=== PATIENT | male | born 1935 | race Caucasian/White ===

== ENCOUNTER 2017-12-17 00:46 | Emergency (ER) | payer MEDICARE, OTHER ==
[~2017-12-17 00:46] MED LIST: ATEN-1 PO; BENZ200C15 PO; CEP500 PO; CETI10CA8 PO; CLIN300C99 PO; CLON-327 PO; CLON-329 PO; FEXO-67 PO; FLU60SYR30 IM ONLY; FLUT16SP19 ENA; FLUT16SP19 NS; HYDR-2966 PO; HYDR10TA3 PO; HYDR30CR10; LISI-347 PO; LISI-353 PO; LORA-629 PO; MONT10TA PO; MONT10TA4 PO; PNEI IJ; PRE20 PO
--- NOTE | 2017-12-17 00:48 | ER Report ---
History and Physical Time Seen By MD: 00:47 HPI/ROS CHIEF COMPLAINT: Chest pain HISTORY OF PRESENT ILLNESS: 82-year-old male presents ambulatory to the ER complaining of sharp left-sided chest pain which woke him up. He describes a sharp 5/60 pain in his left lower rib cage. There is no radiation. He has no associated symptoms. He's had no fever or chills. He has a history of hypertension. He is followed by Dr. Lozano. Patient notes no shortness of breath, cough or recent fever or URI symptoms. Patient states he retired to bed without any symptoms. On arrival now his chest pain is 1/10. His blood pressure is noted to be grossly elevated 203/116 REVIEW OF SYSTEMS: Respiratory: No cough, no dyspnea. Cardiovascular: As above Gastrointestinal: No vomiting, no abdominal pain. Musculoskeletal: No back pain. Allergies: Coded Allergies: cocamidopropyl betaine (Verified Allergy, Severe, blisters, red irritated skin, 12/17/17) lisinopril (Verified Allergy, Severe, 12/17/17) ANDIOEDEMA [place] Inhibitors (Verified Allergy, Unknown, 12/17/17) amlodipine (Verified Allergy, Unknown, 12/17/17) Penicillins (Verified Adverse Reaction, Mild, HIVES, 12/17/17) Home Meds Active Scripts Clonidine Hcl (CLONIDINE HCL) 0.2 Mg Tablet, 1 TAB PO BID, #120 TAB Prov:ABEL AYALA MD 10/31/17 Atenolol (ATENOLOL) 50 Mg Tablet, 1 TAB PO QDAY, #90 TAB Prov:LATASHA LOZANO MD 10/24/17 Reported Medications Fexofenadine Hcl (MELISSA ALLERGY) 180 Mg Tablet, 180 MG PO QDAY 12/07/17 Hydroxyzine Hcl (HYDROXYZINE HCL) 10 Mg Tablet, 10 MG PO QDAY 05/17/17 Past Medical/Surgical History Past Medical History Neurologic: Reports hx of: other neurologic history ([place] syndrome [id number], 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) Hematology/oncology (M): Reports hx of: skin cancer (wrist) Events: REPORTS HX OF: Other events (asbestosis exposure ) Past Surgical History HEENT: Reports hx of: tonsillectomy Reviewed Nurses Notes: Yes Old Medical Records Reviewed: Yes Hx Smoking: No Smoking Status: Never Smoker Hx Substance Use Disorder: No Hx Alcohol Use: Yes (OCC) Constitutional Vital Sign - Last 24 Hours 12/17/17 12/17/17 12/17/17 12/17/17 00:49 00:50 01:01 01:02 Temp 98.0 Pulse 76 61 Resp 16 19 B/P (MAP) 205/103 205/103 (137) 175/94 (121) Pulse Ox 96 94 O2 Delivery Room Air 12/17/17 12/17/17 12/17/17 12/17/17 01:30 01:31 01:46 02:00 Pulse 58 57 Resp 15 12 B/P (MAP) 153/89 (110) 163/84 (110) Pulse Ox 94 92 12/17/17 12/17/17 12/17/17 12/17/17 02:01 02:16 02:30 02:31 Pulse 59 57 58 Resp 52 20 B/P (MAP) 152/93 (112) Pulse Ox 95 94 93 12/17/17 02:36 Pulse 85 Resp 16 B/P (MAP) 142/85 (104) Pulse Ox 95 O2 Delivery Room Air Physical Exam Vital signs stable, grossly elevated blood pressure, pulse ox normal General Appearance: The patient is alert, has no immediate need for airway protection and no current signs of toxicity. Mild distress, alert and oriented 3 HEENT: Pupils equal and round no injection. TMs normal, oropharynx without redness or exudate Respiratory: Chest is non tender, lungs are clear to auscultation. No chest wall tenderness Cardiac: regular rate and rhythm, distant heart sounds Gastrointestinal: Abdomen is soft and non tender, no masses, bowel sounds normal. Musculoskeletal: Neck: Neck is supple and non tender. No JVD, no lymphadenopathy Extremities have full range of motion and are non tender. No edema, no calf tenderness Skin: No rashes or lesions. DIFFERENTIAL DIAGNOSIS: After history and physical exam differential diagnosis was considered for chest pain including but not limited to myocardial ischemia, pericarditis pulmonary embolus, chest wall pain, pleural inflammation and pulmonary infectious causes. Medical Decision Making Data Points Result Diagram: 12/17/17 0055 12/17/17 0055 Laboratory Hematology Test 12/17/17 00:55 Red Blood Count 5.53 M/uL (4.00-5.60) Mean Corpuscular Volume 87.3 fL (80.0-96.0) Mean Corpuscular Hemoglobin 30.1 pg (26.0-33.0) Mean Corpuscular Hemoglobin Concent 34.4 g/dL (32.0-36.0) Red Cell Distribution Width 14.2 % (11.5-14.5) Mean Platelet Volume 7.7 fL (7.2-11.1) Neutrophils (%) (Auto) 53.9 % (39.4-72.5) Lymphocytes (%) (Auto) 33.7 % (17.6-49.6) Monocytes (%) (Auto) 7.4 % (4.1-12.4) Eosinophils (%) (Auto) 4.0 % (0.4-6.7) Basophils (%) (Auto) 1.0 % (0.3-1.4) Nucleated RBC Relative Count (auto) 0.0 /100WBC Neutrophils # (Auto) 3.5 K/uL (2.0-7.4) Lymphocytes # (Auto) 2.2 K/uL (1.3-3.6) Monocytes # (Auto) 0.5 K/uL (0.3-1.0) Eosinophils # (Auto) 0.3 K/uL (0.0-0.5) Basophils # (Auto) 0.1 K/uL (0.0-0.1) Nucleated RBC Absolute Count (auto) 0.00 K/uL D-Dimer Quantitative (PE/DVT) 0.47 ug/ml (0-0.50) Sodium Level 137 mmol/L (137-145) Potassium Level 4.0 mmol/L (3.5-5.0) Chloride Level 100 mmol/L (98-107) Carbon Dioxide Level 25 mmol/L (22-30) Blood Urea Nitrogen 20 mg/dl (9-21) Creatinine 0.90 mg/dl (0.66-1.25) Glomerular Filtration Rate Calc > 60.0 Random Glucose 90 mg/dl (75-110) Calcium Level 9.3 mg/dl (8.4-10.2) Total Bilirubin 0.6 mg/dl (0.2-1.3) Aspartate Amino Transf (AST/SGOT) 47 U/L (0-35) Alanine Aminotransferase (ALT/SGPT) 50 U/L (0-56) Alkaline Phosphatase 91 U/L (0-126) Troponin I < 0.012 ng/ml B-Type Natriuretic Peptide 196 pg/ml (0-100) Total Protein 7.8 gm/dl (6.3-8.2) Albumin 4.0 g/dl (3.5-5.0) Chemistry Test 12/17/17 00:55 White Blood Count 6.4 k/uL (4.5-11.0) Red Blood Count 5.53 M/uL (4.00-5.60) Hemoglobin 16.6 g/dL (14.0-18.0) Hematocrit 48.3 % (42.0-52.0) Mean Corpuscular Volume 87.3 fL (80.0-96.0) Mean Corpuscular Hemoglobin 30.1 pg (26.0-33.0) Mean Corpuscular Hemoglobin Concent 34.4 g/dL (32.0-36.0) Red Cell Distribution Width 14.2 % (11.5-14.5) Platelet Count 122 K/uL (150-450) Mean Platelet Volume 7.7 fL (7.2-11.1) Neutrophils (%) (Auto) 53.9 % (39.4-72.5) Lymphocytes (%) (Auto) 33.7 % (17.6-49.6) Monocytes (%) (Auto) 7.4 % (4.1-12.4) Eosinophils (%) (Auto) 4.0 % (0.4-6.7) Basophils (%) (Auto) 1.0 % (0.3-1.4) Nucleated RBC Relative Count (auto) 0.0 /100WBC Neutrophils # (Auto) 3.5 K/uL (2.0-7.4) Lymphocytes # (Auto) 2.2 K/uL (1.3-3.6) Monocytes # (Auto) 0.5 K/uL (0.3-1.0) Eosinophils # (Auto) 0.3 K/uL (0.0-0.5) Basophils # (Auto) 0.1 K/uL (0.0-0.1) Nucleated RBC Absolute Count (auto) 0.00 K/uL D-Dimer Quantitative (PE/DVT) 0.47 ug/ml (0-0.50) Glomerular Filtration Rate Calc > 60.0 Calcium Level 9.3 mg/dl (8.4-10.2) Total Bilirubin 0.6 mg/dl (0.2-1.3) Aspartate Amino Transf (AST/SGOT) 47 U/L (0-35) Alanine Aminotransferase (ALT/SGPT) 50 U/L (0-56) Alkaline Phosphatase 91 U/L (0-126) Troponin I < 0.012 ng/ml B-Type Natriuretic Peptide 196 pg/ml (0-100) Total Protein 7.8 gm/dl (6.3-8.2) Albumin 4.0 g/dl (3.5-5.0) Coagulation Test 12/17/17 00:55 D-Dimer Quantitative (PE/DVT) 0.47 ug/ml EKG/Imaging EKG Interpretation 12 lead EK Rhythm: normal sinus rhythm with) branch block pattern [place]: normal QRS: Wide QRS ST segments: normal, comparison to previous EKG dated 12/26/59, no significant change Imaging X-ray: Single view portable chest x-ray was obtained. I viewed the images myself on the PACS system. My interpretation of the images is: No infiltrate, no effusion, normal mediastinum., Comparison to previous chest x-ray dated 06/21, no significant change. The radiologist interpretation had no clinically significant variation from this interpretation. ED Course/Re-evaluation Clinical Indication for ER IV: IV Access ED Course Patient was admitted to an examination room. H&P was done. The differential diagnoses was considered. On clinical examination. Patient has left-sided chest pain which she describes as sharp in nature. He notes no associated symptoms. He does have history of hypertension blood pressures grossly elevated. Said no recent illness. His EKG is unchanged from previous EKG. He has a known thoracic aneurysm. It's not changed in many years. Patient's diagnostic laboratory studies show normal troponin. Without any treatment. Patient's pain spontaneously resolves. His blood pressure comes back down to normal range 153/96. He is discharged home and advised to follow-up with his primary care for reevaluation of his blood pressure this next week. He states he has an appointment on Tuesday. Decision to Disposition Date: Dec 17, 2017 Decision to Disposition Time: 02:17 Depart Departure Latest Vital Signs Vital Signs Date Time Temp Pulse Resp B/P (MAP) Pulse Ox O2 Delivery O2 Flow Rate FiO2 12/17/17 02:36 85 16 142/85 (104) 95 Room Air 12/17/17 00:49 98.0 Impression: Primary Impression: Pleuritic chest pain Additional Impression: Hypertension Condition: Improved Disposition: HOME OR SELF-CARE Referrals: LATASHA LOZANO MD (PCP) Patient Instructions: Chest Wall Pain (ED), Hypertension (ED) Additional Instructions: Follow-up with your primary care next early week for a blood pressure recheck and follow-up on your chest pain Return to the ER for any worsening Problem Qualifiers Additional Impression: Hypertension Hypertension type: essential hypertension Qualified Codes: I10 - Essential ( primary) hypertension MARIANA ALBA DO Dec 17, 2017 00:48
[2017-12-17] MEDS ORDERED: ASPIRIN 81 MG CHEW PO ONE (00:55)
[2017-12-17 01:04] LABS: PLATELET COUNT, AUTOMATED 122 K/uL (150-450)
--- NOTE | 2017-12-17 02:35 | RADIOLOGY IMAGING REPORT ---
FACILITY: [facility] - [place] PATIENT NAME: Tyrese Turner : 1935 MR: [id number] V: [id number] EXAM DATE: ORDERING PHYSICIAN: MARIANA ALBA TECHNOLOGIST: [place] [facility] [place] Tyrese Turner : 1935 Visit/Account:[id number] Date of Sevice: 12/17/2017 PORTABLE CHEST: Indication: Chest pain. Technique: A single frontal film was obtained. Comparison: 12/26/2015 Skeletal and soft tissue structures: Intact and unremarkable. Heart and mediastinum: Within normal limits. Lung sorto: Well-expanded. No focal parenchymal opacity or consolidation is identified. There is no vascular congestion. Pleural spaces: Multiple calcified pleural plaques are present, without significant change. There is no evidence of effusion or mass. Impression: No acute process or significant change. Report Dictated By: Héctor Pham MD at 12/17/2017 2:27 AM Report E-Signed By: Héctor Pham MD at 12/17/2017 2:30 AM WSN:[id number]
[2017-12-17 02:36] VITALS: BP 142/85
--- NOTE | 2017-12-17 05:28 | EKG ---
FACILITY: [facility] PATIENT NAME: ROLAND JOHNSON : [id number] MR: [id number] V: [id number] EXAM DATE: ORDERING PHYSICIAN: MARIANA ALBA TECHNOLOGIST: COLIN Test Reason : CHEST PAIN Blood Pressure : / mmHG Vent. Rate : 067 BPM Atrial Rate : 067 BPM P-R Int : 200 ms QRS Dur : 156 ms QT Int : 472 ms P-R-T Axes : 063 092 033 degrees QTc Int : 498 ms Sinus rhythm with premature atrial complexes Right bundle branch block Abnormal ECG Artifact in several leads - repeat if needed Confirmed by RODRICK HERNANDEZ ([id number]) on 12/17/2017 5:38:25 AM Referred By: Confirmed By:RODRICK HERNANDEZ
== END 2017-12-17 02:41 | disposition home or self-care (01) ==
LOC: ER 00:52
DX: R07.81 Pleurodynia (principal); I10 Essential (primary) hypertension; R94.31 Abnormal electrocardiogram [ECG] [EKG]; I45.10 Unspecified right bundle-branch block; R07.89 Other chest pain
CPT/HCPCS: 71045; 83880; 84484; 85025; 85379; 93005; 99284; A9270; 82040; 82247; 82310; 82374; 82435; 82565; 82947; 84075; 84132; 84155; 84295; 84450; 84460; 84520

== ENCOUNTER 2018-01-23 20:52 | Emergency (ER) | payer MEDICARE, OTHER ==
--- NOTE | 2018-01-23 21:03 | ER Report ---
History and Physical Time Seen By : 21:03 Hx. of Stated Complaint: PT REPORTS BLOOD PRESSURE OF 244/88 AT HOME. HPI/ROS CHIEF COMPLAINT: Elevated blood pressure HISTORY OF PRESENT ILLNESS: 82-year-old male presents ambulatory to the ER concerned about elevated blood pressure. He got to 244/89 at home tonight. He' s been monitoring his blood pressure. He is followed by . His blood pressure been elevated for the last 3 days. Today he had a dental procedure where they put varnish on his teeth. He was driving back from [place]. He took his blood pressure this evening noted was elevated. He took an extra clonidine 0.2 mg 7 PM. On arrival, his blood pressures improved. On recheck, it even better at 132/76. Patient voices no complaints. He has no headache, blurry vision, speech changes, nausea or chest pain. Patient further denies shortness of breath. REVIEW OF SYSTEMS: Respiratory: No cough, no dyspnea. Cardiovascular: No chest pain, no palpitations. Gastrointestinal: No vomiting, no abdominal pain. Musculoskeletal: No back pain. Allergies: Coded Allergies: cocamidopropyl betaine (Verified Allergy, Severe, blisters, red irritated skin, 01/23/18) lisinopril (Verified Allergy, Severe, 01/23/18) ANDIOEDEMA DAYTON Inhibitors (Verified Allergy, Unknown, 01/23/18) amlodipine (Verified Allergy, Unknown, 01/23/18) Penicillins (Verified Adverse Reaction, Mild, HIVES, 01/23/18) Home Meds Active Scripts Clonidine Hcl (CLONIDINE HCL) 0.2 Mg Tablet, 1 TAB PO BID, #180 TAB 4 Refills Prov:LATASHA LOZANO MD 01/16/18 Atenolol (ATENOLOL) 50 Mg Tablet, 1 TAB PO QDAY, #90 TAB Prov:LATASHA LOZANO MD 10/24/17 Discontinued Reported Medications Hydroxyzine Hcl (HYDROXYZINE HCL) 10 Mg Tablet, 10 MG PO QDAY Y for itching 05/17/17 Reviewed Nurses Notes: Yes Old Medical Records Reviewed: Yes Hx Smoking: No Smoking Status: Never Smoker Hx Substance Use Disorder: No Hx Alcohol Use: Yes (OCC) Constitutional Vital Sign - Last 24 Hours 01/23/18 01/23/18 01/23/18 01/23/18 20:57 20:58 21:01 21:07 Temp 97.9 Pulse 63 56 Resp 14 21 B/P (MAP) 199/110 199/110 (139) 181/93 (122) Pulse Ox 93 96 O2 Delivery Room Air 01/23/18 01/23/18 01/23/18 01/23/18 21:15 21:22 21:37 21:45 Pulse 51 52 Resp 25 13 B/P (MAP) 132/76 (94) 122/86 (98) Pulse Ox 97 95 01/23/18 01/23/18 01/23/18 01/23/18 21:52 22:00 22:07 22:15 Pulse 50 49 Resp 18 17 B/P (MAP) 124/73 (90) 118/80 (93) Pulse Ox 93 94 Physical Exam General Appearance: The patient is alert, has no immediate need for airway protection and no current signs of toxicity., Blood pressure 189/112, recheck 132/76 Eyes: Pupils equal and round no injection. Respiratory: Chest is non tender, lungs are clear to auscultation. Cardiac: regular rate and rhythm, 2/6 systolic murmur at the apex Gastrointestinal: Abdomen is soft and non tender, no masses, bowel sounds normal. Musculoskeletal: Neck: Neck is supple and non tender. Extremities have full range of motion and are non tender. Skin: No rashes or lesions. DIFFERENTIAL DIAGNOSIS: After history and physical exam differential diagnosis was considered for chest pain including but not limited to myocardial ischemia, pericarditis pulmonary embolus, chest wall pain, elevated blood pressure, pleural inflammation and pulmonary infectious causes. Medical Decision Making Data Points Result Diagram: 01/23/18212901/23/182129 Laboratory Hematology Test 01/23/18 21:30 Red Blood Count 5.17 M/uL (4.00-5.60) Mean Corpuscular Volume 88.0 fL (80.0-96.0) Mean Corpuscular Hemoglobin 30.8 pg (26.0-33.0) Mean Corpuscular Hemoglobin Concent 35.0 g/dL (32.0-36.0) Red Cell Distribution Width 13.9 % (11.5-14.5) Mean Platelet Volume 7.7 fL (7.2-11.1) Neutrophils (%) (Auto) 66.5 % (39.4-72.5) Lymphocytes (%) (Auto) 22.6 % (17.6-49.6) Monocytes (%) (Auto) 6.0 % (4.1-12.4) Eosinophils (%) (Auto) 3.9 % (0.4-6.7) Basophils (%) (Auto) 1.0 % (0.3-1.4) Nucleated RBC Relative Count (auto) 0.1 /100WBC Neutrophils # (Auto) 3.2 K/uL (2.0-7.4) Lymphocytes # (Auto) 1.1 K/uL (1.3-3.6) Monocytes # (Auto) 0.3 K/uL (0.3-1.0) Eosinophils # (Auto) 0.2 K/uL (0.0-0.5) Basophils # (Auto) 0.0 K/uL (0.0-0.1) Nucleated RBC Absolute Count (auto) 0.00 K/uL Sodium Level 136 mmol/L (137-145) Potassium Level 3.5 mmol/L (3.5-5.0) Chloride Level 101 mmol/L (98-107) Carbon Dioxide Level 24 mmol/L (22-30) Blood Urea Nitrogen 13 mg/dl (9-21) Creatinine 0.90 mg/dl (0.66-1.25) Glomerular Filtration Rate Calc > 60.0 Random Glucose 91 mg/dl (75-110) Calcium Level 9.4 mg/dl (8.4-10.2) Total Bilirubin 1.2 mg/dl (0.2-1.3) Aspartate Amino Transf (AST/SGOT) 32 U/L (0-35) Alanine Aminotransferase (ALT/SGPT) 32 U/L (0-56) Alkaline Phosphatase 51 U/L (0-126) Troponin I < 0.012 ng/ml Total Protein 7.0 gm/dl (6.3-8.2) Albumin 3.6 g/dl (3.5-5.0) Chemistry Test 01/23/18 21:30 White Blood Count 4.9 k/uL (4.5-11.0) Red Blood Count 5.17 M/uL (4.00-5.60) Hemoglobin 15.9 g/dL (14.0-18.0) Hematocrit 45.5 % (42.0-52.0) Mean Corpuscular Volume 88.0 fL (80.0-96.0) Mean Corpuscular Hemoglobin 30.8 pg (26.0-33.0) Mean Corpuscular Hemoglobin Concent 35.0 g/dL (32.0-36.0) Red Cell Distribution Width 13.9 % (11.5-14.5) Platelet Count 113 K/uL (150-450) Mean Platelet Volume 7.7 fL (7.2-11.1) Neutrophils (%) (Auto) 66.5 % (39.4-72.5) Lymphocytes (%) (Auto) 22.6 % (17.6-49.6) Monocytes (%) (Auto) 6.0 % (4.1-12.4) Eosinophils (%) (Auto) 3.9 % (0.4-6.7) Basophils (%) (Auto) 1.0 % (0.3-1.4) Nucleated RBC Relative Count (auto) 0.1 /100WBC Neutrophils # (Auto) 3.2 K/uL (2.0-7.4) Lymphocytes # (Auto) 1.1 K/uL (1.3-3.6) Monocytes # (Auto) 0.3 K/uL (0.3-1.0) Eosinophils # (Auto) 0.2 K/uL (0.0-0.5) Basophils # (Auto) 0.0 K/uL (0.0-0.1) Nucleated RBC Absolute Count (auto) 0.00 K/uL Glomerular Filtration Rate Calc > 60.0 Calcium Level 9.4 mg/dl (8.4-10.2) Total Bilirubin 1.2 mg/dl (0.2-1.3) Aspartate Amino Transf (AST/SGOT) 32 U/L (0-35) Alanine Aminotransferase (ALT/SGPT) 32 U/L (0-56) Alkaline Phosphatase 51 U/L (0-126) Troponin I < 0.012 ng/ml Total Protein 7.0 gm/dl (6.3-8.2) Albumin 3.6 g/dl (3.5-5.0) EKG/Imaging EKG Interpretation 12 lead EK Rhythm: Sinus bradycardia with right bundle branch block pattern [place]: normal QRS: normal ST segments: normal, comparison to previous EKG dated 12/17/17, no significant change ED Course/Re-evaluation ED Course Patient was admitted to an examination room. H&P was done. The differential diagnoses was considered. On clinical examination. Patient voices no complaints. He noted elevated blood pressure at home. He had a dental procedure today and had varnish applied to his teeth. It's a dry mouth. He notes no headache, blurry vision, nausea or vomiting. He denies chest pain or shortness of breath. He took a an extra clonidine 0.2 mg. On arrival, his blood pressures improved to 156/102. On repeat here. It's gone down even further 134/76. An EKG is performed which is unremarkable. It's unchanged from his previous EKG. Diagnostic laboratory studies CBC, CMP, and troponin are unremarkable. On reevaluation patient blood pressure standing 118/75. He is discharged home and advised to follow-up with his primary care doctor on Tuesday as planned. He is advised to taken at her 0.2 clonidine if his blood pressure is extremely elevated, but not to exceed 2 tablets twice daily for a total of 4. Decision to Disposition Date: Jan 23, 2018 Decision to Disposition Time: 21:55 Depart Departure Latest Vital Signs Vital Signs Date Time Temp Pulse Resp B/P (MAP) Pulse Ox O2 Delivery O2 Flow Rate FiO2 01/23/18 22:15 118/80 (93) 01/23/18 22:07 49 17 94 01/23/18 20:57 97.9 Room Air Impression: Primary Impression: Hypertension Condition: Improved Disposition: HOME OR SELF-CARE Referrals: LATASHA LOZANO MD (PCP) Patient Instructions: Hypertension (ED) Additional Instructions: Follow-up with Dr. Lozano as planned on Tuesday Problem Qualifiers Primary Impression: Hypertension Hypertension type: essential hypertension Qualified Codes: I10 - Essential ( primary) hypertension ANJALIMARIANA Quinton TINEO Jan 23, 2018 21:03
[2018-01-23] MEDS ORDERED: cloNIDine HCL 0.1 MG TAB PO ONE (21:15)
[2018-01-23 21:38] LABS: PLATELET COUNT, AUTOMATED 113 K/uL (150-450)
[2018-01-23 22:15] VITALS: BP 118/80
--- NOTE | 2018-01-23 23:33 | EKG ---
FACILITY: [facility] PATIENT NAME: ROLAND JOHNSON : [id number] MR: [id number] V: [id number] EXAM DATE: ORDERING PHYSICIAN: MARIANA ALBA TECHNOLOGIST: PEE Test Reason : TOYA BP Blood Pressure : / mmHG Vent. Rate : 051 BPM Atrial Rate : 051 BPM P-R Int : 184 ms QRS Dur : 144 ms QT Int : 522 ms P-R-T Axes : 000 082 005 degrees QTc Int : 481 ms Sinus bradycardia Premature atrial beat. Right bundle branch block Abnormal ECG When compared with ECG of 17-DEC-2017 00:51, T wave inversion no longer evident in Anterior leads Confirmed by SHITAL FELTON ([id number]) on 01/24/2018 6:33:38 AM Referred By: Confirmed By:SHITAL FELTON
[2018-01-24] MEDS ORDERED: ATEN-1 PO (16:57)
[2018-01-25] MEDS ORDERED: ESCI10TA8 PO (13:03)
[2018-01-25] MEDS ORDERED: ALPR-1 PO (13:03)
== END 2018-01-23 22:29 | disposition home or self-care (01) ==
LOC: ER 21:25
DX: I10 Essential (primary) hypertension (principal)
CPT/HCPCS: 82040; 82247; 82310; 82374; 82435; 82565; 82947; 84075; 84132; 84155; 84295; 84450; 84460; 84484; 84520; 85025; 93005; 99283

== ENCOUNTER 2018-01-26 14:49 | Emergency (ER) | payer MEDICARE, OTHER ==
[~2018-01-26 14:49] MED LIST changes: +ALPR-1 PO; +ESCI10TA8 PO
--- NOTE | 2018-01-26 15:12 | ER Report ---
History and Physical Time Seen By MD: 15:02 Hx. of Stated Complaint: pt reports high bp at home, shakiness- started 1 hour ago HPI/ROS Patient is a 82 y.o. male here for high BPs. He has been seen by his PCP who believes that he is experiencing anxiety. The patient states that he took his BP at home and it was low 200/low 100. He since monitors it more frequently and has found that his BP will occasionally go up. He will often feel palpitations during these times. His PCP gave him Lexapro and Xanax for anxiety. He has started taking the Lexapro but has not taken the Xanax when his BP rises. He takes Catapres and atenolol for his BP. The patient also reports a stable AAA and heart murmur. No difficulty urinating, no kidney issues, no respiratory issues, no other cardiac issues. No N/V/D or constipation. No headaches. No bruising. Allergies: Coded Allergies: cocamidopropyl betaine (Verified Allergy, Severe, blisters, red irritated skin, 01/26/18) lisinopril (Verified Allergy, Severe, 01/26/18) ANDIOEDEMA [place] Inhibitors (Verified Allergy, Unknown, 01/26/18) amlodipine (Verified Allergy, Unknown, 01/26/18) Penicillins (Verified Adverse Reaction, Mild, HIVES, 01/26/18) Home Meds Active Scripts Alprazolam 0.25 Mg Tab (XANAX 0.25 MG TAB) 0.25 Mg Tablet, 1 TAB PO QDAY Y for anxiety, #20 TAB Prov:LATASHA PEDERSON MD 01/25/18 Escitalopram Oxalate (ESCITALOPRAM OXALATE) 10 Mg Tablet, 10 MG PO QDAY, #30 TAB 3 Refills Prov:LATASHA PEDERSON MD 01/25/18 Atenolol (ATENOLOL) 50 Mg Tablet, 1 TAB PO QDAY, #90 TAB 4 Refills Prov:LATASHA PEDERSON MD 01/24/18 Clonidine Hcl (CLONIDINE HCL) 0.2 Mg Tablet, 1 TAB PO BID, #180 TAB 4 Refills Prov:LATASHA PEDERSON MD 01/16/18 Discontinued Reported Medications Hydroxyzine Hcl (HYDROXYZINE HCL) 10 Mg Tablet, 10 MG PO QDAY Y for itching 05/17/17 Past Medical/Surgical History AAA, HTN Hx Smoking: No Smoking Status: Never Smoker Hx Substance Use Disorder: No Hx Alcohol Use: Yes (OCC) Constitutional Vital Sign - Last 24 Hours 01/26/18 01/26/18 01/26/18 01/26/18 14:54 14:57 14:59 15:04 Temp 97.6 Pulse 61 60 Resp 16 B/P (MAP) 203/104 (137) 203/104 186/94 (124) Pulse Ox 96 96 O2 Delivery Room Air 01/26/18 01/26/18 01/26/18 01/26/18 15:19 15:30 15:34 15:39 Pulse 59 56 57 B/P (MAP) 171/92 (118) Pulse Ox 94 95 93 01/26/18 01/26/18 01/26/18 01/26/18 16:01 16:09 16:24 16:30 Pulse 51 50 B/P (MAP) 163/97 (119) 137/78 (97) Pulse Ox 94 93 01/26/18 01/26/18 01/26/18 01/26/18 16:35 16:40 16:45 16:50 Pulse 53 48 48 54 Pulse Ox 94 93 94 95 01/26/18 01/26/18 16:55 17:00 Pulse 50 47 B/P (MAP) 137/84 (101) Pulse Ox 95 95 Physical Exam General: Under no acute distress. Eyes: Funduscopic exam WNL Neck: Trachea midline, no bruits, difficult thyroid palpation d/t SCM positioning. Resp: Clear and equal bilaterally. No retractions or accessory muscle use. CV: RRR, positive grade II systolic pulmonic murmur, no gallops, or rubs. Distal pulses strong and equal. No edema. Abdomen: Bowel sounds hypoactive in UQs but active in LQs. No aortic or renal bruits. No tenderness or guarding. No lymphadenopathy. Neuro: A&O x3, CN II-XII grossly intact Psych: Anxious without depression. No psychosis Medical Decision Making Data Points Result Diagram: 01/26/18 1602 01/26/18 1602 Laboratory Hematology Test 01/26/18 16:02 Red Blood Count 5.45 M/uL (4.00-5.60) Mean Corpuscular Volume 87.4 fL (80.0-96.0) Mean Corpuscular Hemoglobin 30.6 pg (26.0-33.0) Mean Corpuscular Hemoglobin Concent 35.0 g/dL (32.0-36.0) Red Cell Distribution Width 14.3 % (11.5-14.5) Mean Platelet Volume 7.7 fL (7.2-11.1) Neutrophils (%) (Auto) 75.9 % (39.4-72.5) Lymphocytes (%) (Auto) 14.4 % (17.6-49.6) Monocytes (%) (Auto) 6.1 % (4.1-12.4) Eosinophils (%) (Auto) 2.6 % (0.4-6.7) Basophils (%) (Auto) 1.0 % (0.3-1.4) Nucleated RBC Relative Count (auto) 0.3 /100WBC Neutrophils # (Auto) 3.5 K/uL (2.0-7.4) Lymphocytes # (Auto) 0.7 K/uL (1.3-3.6) Monocytes # (Auto) 0.3 K/uL (0.3-1.0) Eosinophils # (Auto) 0.1 K/uL (0.0-0.5) Basophils # (Auto) 0.0 K/uL (0.0-0.1) Nucleated RBC Absolute Count (auto) 0.01 K/uL Urine Color Straw Urine Clarity Clear Urine pH 6.0 pH (4.8-9.5) Urine Specific [place] 1.004 Urine Protein Negative mg/dL (NEGATIVE) Urine Glucose (UA) Negative mg/dL (NEGATIVE) Urine Ketones Negative mg/dL (NEGATIVE) Urine Blood Negative (NEGATIVE) Urine Nitrite Negative (NEGATIVE) Urine Bilirubin Negative (NEGATIVE) Urine Urobilinogen Negative mg/dL (0.2-1.9) Urine Leukocyte Esterase Negative (NEGATIVE) Urine RBC <1 /HPF (0-2/HPF) Urine WBC <1 /HPF (0-5/HPF) Urine Squamous Epithelial Cells None /LPF (</=FEW) Urine Bacteria Negative /HPF (NONE-FEW) Urine Mucus None /HPF (NONE-FEW) Sodium Level 140 mmol/L (137-145) Potassium Level 3.5 mmol/L (3.5-5.0) Chloride Level 99 mmol/L (98-107) Carbon Dioxide Level 28 mmol/L (22-30) Blood Urea Nitrogen 17 mg/dl (9-21) Creatinine 1.00 mg/dl (0.66-1.25) Glomerular Filtration Rate Calc > 60.0 Random Glucose 105 mg/dl (75-110) Calcium Level 9.5 mg/dl (8.4-10.2) Total Bilirubin 0.8 mg/dl (0.2-1.3) Aspartate Amino Transf (AST/SGOT) 33 U/L (0-35) Alanine Aminotransferase (ALT/SGPT) 27 U/L (0-56) Alkaline Phosphatase 60 U/L (0-126) Troponin I < 0.012 ng/ml B-Type Natriuretic Peptide 154 pg/ml (0-100) Total Protein 7.4 gm/dl (6.3-8.2) Albumin 3.9 g/dl (3.5-5.0) Chemistry Test 01/26/18 16:02 White Blood Count 4.6 k/uL (4.5-11.0) Red Blood Count 5.45 M/uL (4.00-5.60) Hemoglobin 16.7 g/dL (14.0-18.0) Hematocrit 47.7 % (42.0-52.0) Mean Corpuscular Volume 87.4 fL (80.0-96.0) Mean Corpuscular Hemoglobin 30.6 pg (26.0-33.0) Mean Corpuscular Hemoglobin Concent 35.0 g/dL (32.0-36.0) Red Cell Distribution Width 14.3 % (11.5-14.5) Platelet Count 125 K/uL (150-450) Mean Platelet Volume 7.7 fL (7.2-11.1) Neutrophils (%) (Auto) 75.9 % (39.4-72.5) Lymphocytes (%) (Auto) 14.4 % (17.6-49.6) Monocytes (%) (Auto) 6.1 % (4.1-12.4) Eosinophils (%) (Auto) 2.6 % (0.4-6.7) Basophils (%) (Auto) 1.0 % (0.3-1.4) Nucleated RBC Relative Count (auto) 0.3 /100WBC Neutrophils # (Auto) 3.5 K/uL (2.0-7.4) Lymphocytes # (Auto) 0.7 K/uL (1.3-3.6) Monocytes # (Auto) 0.3 K/uL (0.3-1.0) Eosinophils # (Auto) 0.1 K/uL (0.0-0.5) Basophils # (Auto) 0.0 K/uL (0.0-0.1) Nucleated RBC Absolute Count (auto) 0.01 K/uL Urine Color Straw Urine Clarity Clear Urine pH 6.0 pH (4.8-9.5) Urine Specific [place] 1.004 Urine Protein Negative mg/dL (NEGATIVE) Urine Glucose (UA) Negative mg/dL (NEGATIVE) Urine Ketones Negative mg/dL (NEGATIVE) Urine Blood Negative (NEGATIVE) Urine Nitrite Negative (NEGATIVE) Urine Bilirubin Negative (NEGATIVE) Urine Urobilinogen Negative mg/dL (0.2-1.9) Urine Leukocyte Esterase Negative (NEGATIVE) Urine RBC <1 /HPF (0-2/HPF) Urine WBC <1 /HPF (0-5/HPF) Urine Squamous Epithelial Cells None /LPF (</=FEW) Urine Bacteria Negative /HPF (NONE-FEW) Urine Mucus None /HPF (NONE-FEW) Glomerular Filtration Rate Calc > 60.0 Calcium Level 9.5 mg/dl (8.4-10.2) Total Bilirubin 0.8 mg/dl (0.2-1.3) Aspartate Amino Transf (AST/SGOT) 33 U/L (0-35) Alanine Aminotransferase (ALT/SGPT) 27 U/L (0-56) Alkaline Phosphatase 60 U/L (0-126) Troponin I < 0.012 ng/ml B-Type Natriuretic Peptide 154 pg/ml (0-100) Total Protein 7.4 gm/dl (6.3-8.2) Albumin 3.9 g/dl (3.5-5.0) Urinalysis Test 01/26/18 16:02 Urine Color Straw Urine Clarity Clear Urine pH 6.0 pH (4.8-9.5) Urine Specific Capron 1.004 Urine Protein Negative mg/dL (NEGATIVE) Urine Glucose (UA) Negative mg/dL (NEGATIVE) Urine Ketones Negative mg/dL (NEGATIVE) Urine Blood Negative (NEGATIVE) Urine Nitrite Negative (NEGATIVE) Urine Bilirubin Negative (NEGATIVE) Urine Urobilinogen Negative mg/dL (0.2-1.9) Urine Leukocyte Esterase Negative (NEGATIVE) Urine RBC <1 /HPF (0-2/HPF) Urine WBC <1 /HPF (0-5/HPF) Urine Squamous Epithelial Cells None /LPF (</=FEW) Urine Bacteria Negative /HPF (NONE-FEW) Urine Mucus None /HPF (NONE-FEW) EKG/Imaging EKG Interpretation 12 lead EKG: Rhythm: Sinus bradycardia with sinus arrhythmia [place]: normal QRS: Right bundle branch block ST segments: normal Monitor Interpretation: Other (Right BBB) Imaging Study: Frontal and lateral views of the chest Indication: Hypertension Comparison study: December 17, 2017 Findings: PA and lateral views of the chest demonstrate no evidence of acute infiltrate. There is hyperexpansion of the lungs. There are calcified pleural plaques overlying the left hemithorax on the frontal view. These are unchanged from the previous study. There is no evidence of pleural effusion. There is no evidence of pneumothorax. The mediastinal, cardiac, and diaphragmatic contours are unremarkable. The visualized bony structures are unremarkable. IMPRESSION: No change from the previous study. There is no evidence of acute cardiopulmonary abnormality. Report Dictated By: Sonny Mora at 01/26/2018 4:32 PM Report E-Signed By: Sonny Mora at 01/26/2018 4:33 PM ED Course/Re-evaluation ED Course Patient presents to ER for evaluation of HTN. He is admitted, EKG and vitals obtained. He is examined. CBC w/ diff, CMP, BNP, UA, troponin I, and CXR ordered. IV started and saline locked. Labs and CXR WNL. Patient educated on medication for anxiety and provided with care instructions. Instructed to follow -up with PCP. Discharge to home with . Decision to Disposition Date: Jan 26, 2018 Decision to Disposition Time: 16:58 Depart Departure Latest Vital Signs Vital Signs Date Time Temp Pulse Resp B/P (MAP) Pulse Ox O2 Delivery O2 Flow Rate FiO2 01/26/18 17:00 47 137/84 (101) 95 01/26/18 14:57 97.6 16 Room Air Impression: Primary Impression: Benign hypertension Additional Impression: Anxiety, generalized Condition: Improved Disposition: HOME OR SELF-CARE Referrals: LATASHA PEDERSON MD (PCP) Patient Instructions: Anxiety (ED), Chronic Hypertension (ED) Additional Instructions: Your are experiencing transient rises in your blood pressure probably due to anxiety. We discussed the use of your escitalopram for senior care management of your anxiety. You were provided with Xanax to manage acute anxiety until the senior care medication starts to work. We educated you on mindfulness activities and relaxation techniques to reduce anxiety. Continue BP medications as ordered and follow-up with your primary care physician. Return to ER if symptoms worsen. Problem Qualifiers FATOU LOZANO Jan 26, 2018 15:12
--- NOTE | 2018-01-26 15:20 | EKG ---
[place] [facility] [place] ROLAND JOHNSON : [id number] MR: [id number] V: [id number] EXAM DATE: ORDERING PHYSICIAN: ALEXA ATKINSON TECHNOLOGIST: Westley Cisneros Reason : Blood Pressure : / mmHG Vent. Rate : 057 BPM Atrial Rate : 057 BPM P-R Int : 192 ms QRS Dur : 156 ms QT Int : 500 ms P-R-T Axes : 045 086 020 degrees QTc Int : 486 ms Sinus bradycardia Probable left atrial enlargement Right bundle branch block Abnormal ECG When compared with ECG of 23-JAN-2018 21:15, No significant change was found Confirmed by RODRICK HERNANDEZ ([id number]) on 01/26/2018 4:27:07 PM Referred By: Confirmed By:RODRICK HERNANDEZ
[2018-01-26 16:14] LABS: PLATELET COUNT, AUTOMATED 125 K/uL (150-450)
--- NOTE | 2018-01-26 16:37 | RADIOLOGY IMAGING REPORT ---
FACILITY: [facility] PATIENT NAME: Tyrese Turner : 1935 MR: [id number] V: [id number] EXAM DATE: ORDERING PHYSICIAN: FATOU LOZANO TECHNOLOGIST: Location: [facility] Patient: Tyrese Turner : 1935 Visit/Account:[id number] Date of Sevice: 01/26/2018 Study: Frontal and lateral views of the chest Indication: Hypertension Comparison study: December 17, 2017 Findings: PA and lateral views of the chest demonstrate no evidence of acute infiltrate. There is h yperexpansion of the lungs. There are calcified pleural plaques overlying the left hemithorax on the frontal view. These are unchanged from the previous study. There is no evidence of pleural effusion. There is no evidence of pneumothorax. The mediastinal, cardiac, and diaphragmatic contours are unremarkable. The visualized bony structures are unremarkable. IMPRESSION: No change from the previous study. There is no evidence of acute cardiopulmonary abnormal ity. Report Dictated By: Sonny Mora at 01/26/2018 4:32 PM Report E-Signed By: Sonny Mora at 01/26/2018 4:33 PM WSN:[id number]
[2018-01-26 17:00] VITALS: BP 137/84
== END 2018-01-26 17:06 | disposition home or self-care (01) ==
LOC: ER 14:58
DX: I10 Essential (primary) hypertension (principal); F41.9 Anxiety disorder, unspecified; R00.1 Bradycardia, unspecified; I45.10 Unspecified right bundle-branch block; R94.31 Abnormal electrocardiogram [ECG] [EKG]; R01.1 Cardiac murmur, unspecified
CPT/HCPCS: 71046; 81001; 82040; 82247; 82310; 82374; 82435; 82565; 82947; 83880; 84075; 84132; 84155; 84295; 84450; 84460; 84484; 84520; 85025; 93005; 99284

== ENCOUNTER → 2018-07-28 | Outpatient (CLI) | payer MEDICARE, OTHER ==
[~2018-07-28] MED LIST changes: +CAND8TAB PO; +FLU180SY11 IM; +GADOBENATE 529MG/1ML 15ML VIAL IVP ONE; +TRAZ50TA34 PO
--- NOTE | 2018-07-28 10:28 | RADIOLOGY IMAGING REPORT ---
FACILITY: PATIENT NAME: Tyrese Turner : 1935 MR: [id number] V: [id number] EXAM DATE: ORDERING PHYSICIAN: LATASHA PEDERSON TECHNOLOGIST: Location: [facility] Patient: Tyrese Turner : 1935 Visit/Account:[id number] Date of Sevice: 07/28/2018 Examination: MR brain without and with contrast History: Dizziness Comparison: None Technique: Multiplane MR imaging was performed through the brain without and with contrast. 15 cc IV multihance was administered. Findings: Diffusion: None Ventricles: Normal Midline shift: None Extraxial fluid: None Midline craniocervical structures: Jim cisterna magna versus arachnoid cyst in the posterior fossa. Parenchyma: Multiple punctate chronic right cerebellar infarcts. Confluent periventricular and deep white matter high signal. Multiple small white matter high signal foci. Small medial bilateral cere bellar chronic infarcts. Enhancement: No pathologic enhancement Vascular flow voids: Heterogeneous signal within the right vertebral artery flow-void at the C1 level and foramen magnum region. Orbits and paranasal sinuses: Normal Impression: 1. No acute finding. 2. Chronic punctate to small bilateral cerebellar infarcts. 3. Moderate chronic small vessel ischemic change. 4. Heterogeneous signal within the right vertebral artery at the C1 level and in the foramen magnum region may represent chronic occlusion or heterogeneous flow related to right vertebral artery stenos is. Report Dictated By: Karthik Oro MD at 07/28/2018 10:18 AM Report E-Signed By: Karthik Oro MD at 07/28/2018 10:24 AM WSN:[id number]
== END ==
LOC: MRI 02:42
PROVIDERS: ATTEND Internal Medicine
DX: H53.483 Generalized contraction of visual field, bilateral (principal); R42 Dizziness and giddiness
CPT/HCPCS: 70553; A9577

== ENCOUNTER 2018-08-02 09:38 | Emergency (ER) | payer MEDICARE, OTHER ==
[~2018-08-02 09:38] MED LIST changes: -GADOBENATE 529MG/1ML 15ML VIAL IVP ONE
[2018-08-02] MEDS ORDERED: MECLIZINE HCL 12.5 MG TAB PO ONE (10:15)
--- NOTE | 2018-08-02 10:22 | EKG ---
FACILITY: [facility] PATIENT NAME: ROLAND JOHNSON : [id number] MR: [id number] V: [id number] EXAM DATE: ORDERING PHYSICIAN: SHAHRAM BARAJAS TECHNOLOGIST: JUAN Cisneros Reason : CP Blood Pressure : / mmHG Vent. Rate : 071 BPM Atrial Rate : 071 BPM P-R Int : 184 ms QRS Dur : 144 ms QT Int : 496 ms P-R-T Axes : 000 095 014 degrees QTc Int : 538 ms Sinus rhythm with premature atrial complexes Right bundle branch block Prolonged QT interval Baseline artifact in several leads - repeat if needed Abnormal ECG Confirmed by RODRICK HERNANDEZ ([id number]) on 08/02/2018 8:40:01 PM Referred By: KARL Confirmed By:RODRICK HERNANDEZ
[2018-08-02 10:45] LABS: PLATELET COUNT, AUTOMATED 119 K/uL (150-450)
--- NOTE | 2018-08-02 10:59 | ER Report ---
History and Physical Time Seen By MD: 09:45 Hx. of Stated Complaint: PATIENT REPORTS THAT HE WOKE UP AT 0630 AND WAS SHAKEY. HIS SON IS WITH HIM AND REPORTS THAT HE SEEMS A LITTLE SLOWER HPI/ROS CHIEF COMPLAINT: Dizzy HISTORY OF PRESENT ILLNESS: 83-year-old male comes in with acute onset of vertiginous type symptoms from a spinning ataxic gait unable to find balances happened about 1415 years ago is told he had vertigo that an Ryan maneuver and active benefit patient has no chest pain shortness of breath nausea vomiting diarrhea fever chills or additional complaints noted patient states that he awoke this morning to get up and walk and felt acutely dizzy headed be helped to up his car with his son patient has no additional complaints other than he's had some chronic muffled sound in his ears REVIEW OF SYSTEMS: Respiratory: No cough, no dyspnea. Cardiovascular: No chest pain, no palpitations. Gastrointestinal: No vomiting, no abdominal pain. Musculoskeletal: No back pain. Allergies: Coded Allergies: cocamidopropyl betaine (Verified Allergy, Severe, blisters, red irritated skin, 01/26/18) lisinopril (Verified Allergy, Severe, 01/26/18) ANDIOEDEMA [place] Inhibitors (Verified Allergy, Unknown, 01/26/18) amlodipine (Verified Allergy, Unknown, 01/26/18) Penicillins (Verified Adverse Reaction, Mild, HIVES, 01/26/18) Home Meds Active Scripts Hydrochlorothiazide (HYDROCHLOROTHIAZIDE) 25 Mg Tablet, 1 TAB PO QDAY, #30 TAB 3 Refills Prov:LATASHA PEDERSON MD 07/17/18 Trazodone Hcl (TRAZODONE HCL) 50 Mg Tablet, 0.5-1 TAB PO QHS PRN for difficulty sleeping, #30 TAB 3 Refills Prov:LATASHA PEDERSON MD 03/27/18 Clonidine Hcl (CLONIDINE HCL) 0.2 Mg Tablet, 1 TAB PO TID, #270 TAB 2 Refills Prov:LATASHA PEDERSON MD 03/27/18 Reported Medications Alprazolam 0.25 Mg Tab (XANAX 0.25 MG TAB) 0.25 Mg Tablet, 1 TAB PO QDAY PRN for anxiety, TAB 03/27/18 Reviewed Nurses Notes: Yes Old Medical Records Reviewed: Yes Hx Smoking: No Smoking Status: Never Smoker Hx Substance Use Disorder: No Hx Alcohol Use: Yes (OCC) Constitutional Vital Sign - Last 24 Hours 08/02/18 08/02/18 08/02/18 08/02/18 09:51 09:52 10:00 10:08 Temp 97.8 Pulse 70 67 Resp 20 B/P (MAP) 181/101 (127) 181/101 172/114 (133) Pulse Ox 94 96 08/02/18 08/02/18 08/02/18 08/02/18 10:30 11:00 11:08 11:30 Pulse 60 B/P (MAP) 184/118 (140) 136/85 (102) 145/88 (107) Pulse Ox 95 Physical Exam General Appearance: The patient is alert, has no immediate need for airway pro tection and no current signs of toxicity. [ ] Eyes: Pupils equal and round no injection. Respiratory: Chest is non tender, lungs are clear to auscultation. Cardiac: regular rate and rhythm [ ] Gastrointestinal: Abdomen is soft and non tender, no masses, bowel sounds normal. Musculoskeletal: Neck: Neck is supple and non tender. Extremities have full range of motion and are non tender. Skin: No rashes or lesions. Neurologic ataxic gait no nystagmus no focal neurological deficits GCS 15 alert and oriented 4 DIFFERENTIAL DIAGNOSIS: After history and physical exam differential diagnosis was considered for vertigo cardiac abnormality stroke intracranial bleed mass or lesion Medical Decision Making Data Points Result Diagram: 08/02/18 1030 08/02/18 1030 Laboratory Hematology Test 08/02/18 10:30 Red Blood Count 5.47 M/uL (4.00-5.60) Mean Corpuscular Volume 87.9 fL (80.0-96.0) Mean Corpuscular Hemoglobin 30.6 pg (26.0-33.0) Mean Corpuscular Hemoglobin Concent 34.8 g/dL (32.0-36.0) Red Cell Distribution Width 14.2 % (11.5-14.5) Mean Platelet Volume 7.7 fL (7.2-11.1) Neutrophils (%) (Auto) 72.2 % (39.4-72.5) Lymphocytes (%) (Auto) 16.7 % (17.6-49.6) Monocytes (%) (Auto) 9.4 % (4.1-12.4) Eosinophils (%) (Auto) 0.8 % (0.4-6.7) Basophils (%) (Auto) 0.9 % (0.3-1.4) Nucleated RBC Relative Count (auto) 0.2 /100WBC Neutrophils # (Auto) 2.1 K/uL (2.0-7.4) Lymphocytes # (Auto) 0.5 K/uL (1.3-3.6) Monocytes # (Auto) 0.3 K/uL (0.3-1.0) Eosinophils # (Auto) 0.0 K/uL (0.0-0.5) Basophils # (Auto) 0.0 K/uL (0.0-0.1) Nucleated RBC Absolute Count (auto) 0.01 K/uL Sodium Level 138 mmol/L (137-145) Potassium Level 3.4 mmol/L (3.5-5.0) Chloride Level 99 mmol/L (98-107) Carbon Dioxide Level 27 mmol/L (22-30) Blood Urea Nitrogen 16 mg/dl (9-21) Creatinine 0.90 mg/dl (0.66-1.25) Glomerular Filtration Rate Calc > 60.0 Random Glucose 103 mg/dl (75-110) Calcium Level 9.6 mg/dl (8.4-10.2) Total Bilirubin 1.1 mg/dl (0.2-1.3) Aspartate Amino Transf (AST/SGOT) 44 U/L (0-35) Alanine Aminotransferase (ALT/SGPT) 36 U/L (0-56) Alkaline Phosphatase 60 U/L (0-126) Troponin I < 0.012 ng/ml Total Protein 7.7 g/dl (6.3-8.2) Albumin 4.1 g/dl (3.5-5.0) Chemistry Test 08/02/18 10:30 White Blood Count 2.9 k/uL (4.5-11.0) Red Blood Count 5.47 M/uL (4.00-5.60) Hemoglobin 16.7 g/dL (14.0-18.0) Hematocrit 48.0 % (42.0-52.0) Mean Corpuscular Volume 87.9 fL (80.0-96.0) Mean Corpuscular Hemoglobin 30.6 pg (26.0-33.0) Mean Corpuscular Hemoglobin Concent 34.8 g/dL (32.0-36.0) Red Cell Distribution Width 14.2 % (11.5-14.5) Platelet Count 119 K/uL (150-450) Mean Platelet Volume 7.7 fL (7.2-11.1) Neutrophils (%) (Auto) 72.2 % (39.4-72.5) Lymphocytes (%) (Auto) 16.7 % (17.6-49.6) Monocytes (%) (Auto) 9.4 % (4.1-12.4) Eosinophils (%) (Auto) 0.8 % (0.4-6.7) Basophils (%) (Auto) 0.9 % (0.3-1.4) Nucleated RBC Relative Count (auto) 0.2 /100WBC Neutrophils # (Auto) 2.1 K/uL (2.0-7.4) Lymphocytes # (Auto) 0.5 K/uL (1.3-3.6) Monocytes # (Auto) 0.3 K/uL (0.3-1.0) Eosinophils # (Auto) 0.0 K/uL (0.0-0.5) Basophils # (Auto) 0.0 K/uL (0.0-0.1) Nucleated RBC Absolute Count (auto) 0.01 K/uL Glomerular Filtration Rate Calc > 60.0 Calcium Level 9.6 mg/dl (8.4-10.2) Total Bilirubin 1.1 mg/dl (0.2-1.3) Aspartate Amino Transf (AST/SGOT) 44 U/L (0-35) Alanine Aminotransferase (ALT/SGPT) 36 U/L (0-56) Alkaline Phosphatase 60 U/L (0-126) Troponin I < 0.012 ng/ml Total Protein 7.7 g/dl (6.3-8.2) Albumin 4.1 g/dl (3.5-5.0) ED Course/Re-evaluation ED Course 80 clinical course medical decision-making 83-year-old male comes in with classic vertiginous type symptoms reproducible changes and had Ryan maneuver did release some of his symptoms started and then 1 by mouth tablet of Antivert he feels significantly better head CT negative chest x-ray cardiac markers and otherwise remarkable is unremarkable patient is asymptomatic we'll ambulate prior to given by mouth Antivert and follow up with ENT Decision to Disposition Date: Aug 02, 2018 Decision to Disposition Time: 11:52 Depart Departure Latest Vital Signs Vital Signs Date Time Temp Pulse Resp B/P (MAP) Pulse Ox O2 Delivery O2 Flow Rate FiO2 08/02/18 11:30 145/88 (107) 08/02/18 11:08 60 95 08/02/18 09:52 97.8 20 Impression: Primary Impression: Vertigo Condition: Improved Disposition: HOME OR SELF-CARE Referrals: LATASHA PEDERSON MD (PCP) LYNN LIVINGSTON JR, MD 5 Days Patient Instructions: Benign Paroxysmal Positional Vertigo (DC) SHAHRAM BARAJAS MD Aug 02, 2018 10:59
--- NOTE | 2018-08-02 11:09 | RADIOLOGY IMAGING REPORT ---
FACILITY: [facility] PATIENT NAME: Tyrese Turner : 1935 MR: [id number] V: [id number] EXAM DATE: ORDERING PHYSICIAN: SHAHRAM BARAJAS TECHNOLOGIST: Location: [facility] Patient: Tyrese Turner : 1935 Visit/Account:[id number] Date of Sevice: 08/02/2018 EXAMINATION: CT head without IV contrast HISTORY: Dizzy. COMPARISON: Brain MRI from 07/28/2018. TECHNIQUE: Contiguous axial images were obtained from the skull base to the vertex without intraven ous contrast. Sagittal and coronal reformatted images are also submitted. One of the following dose optimization techniques was utilized in the performance of this exam: Autom ated exposure control; adjustment of the mA and/or kV according to the patient's size; or use of an i terative reconstruction technique. Specific details can be referenced in the facility's radiology C T exam operational policy. FINDINGS: Brain volume: Mild generalized atrophy with associated concordant prominence of the ventricular syst em. Ventricles: Normal. Acute ischemic changes: None. Hemorrhage: No acute intracranial hemorrhage. Masses/edema: None. Hess-white: Moderate-sized chronic infarcts in the bilateral cerebellar hemispheres, right greater th an left, unchanged. White matter: Patchy hypodensities in the deep white matter bilaterally. Vessels: Calcified plaque of the vertebral arteries and carotid siphons at the skull base. Extra-axial: Negative. Calvarium/scalp: Negative. Skull base/visualized face: Negative. Visualized sinuses/orbits: Mild patchy mucosal thickening in the paranasal sinuses, worst in the brad ateral ethmoid air cells. IMPRESSION: 1. No intracranial mass lesion or hemorrhage. No CT evidence of acute infarct. 2. Moderate nonspecific white matter disease is suspicious for chronic small vessel ischemia. 3. Moderate-sized bilateral cerebellar infarcts, unchanged. Report Dictated By: Susan Bowman MD at 08/02/2018 11:03 AM Report E-Signed By: Susan Bowman MD at 08/02/2018 11:05 AM WSN:[id number]
[2018-08-02 11:30] VITALS: BP 145/88
--- NOTE | 2018-08-02 11:32 | RADIOLOGY IMAGING REPORT ---
FACILITY: [facility] PATIENT NAME: Tyrese Turner : 1935 MR: [id number] V: [id number] EXAM DATE: ORDERING PHYSICIAN: SHAHRAM BARAJAS TECHNOLOGIST: [place] [facility] [place] Tyrese Turner : 1935 Visit/Account:[id number] Date of Sevice: 08/02/2018 Exam type: CHEST PA AND LAT History: cp Comparison: January 26, 2018 Findings: Again noted is hyperexpansion of the lung sorto. Calcified pleural plaques are noted bilaterally bi lateral . Pulmonary nodules also appear relatively stable.. There is no evidence of acute effusions of the tracer edema. The cardiac fluid appears normal in size. There are spondylotic changes of th e thoracic spine. IMPRESSION: 1. Calcified pleural plaques and bilateral pulmonary nodules appear stable when compared to the prio r study Hyperinflation lung sorto again noted Report Dictated By: Anjana Meadows MD at 08/02/2018 11:23 AM Report E-Signed By: Anjana Meadows MD at 08/02/2018 11:27 AM WSN:[email or web address]
== END 2018-08-02 12:10 | disposition home or self-care (01) ==
LOC: ER 10:09
DX: R42 Dizziness and giddiness (principal); I45.10 Unspecified right bundle-branch block; R94.31 Abnormal electrocardiogram [ECG] [EKG]
CPT/HCPCS: 70450; 71046; 84484; 85025; 93005; 99284; J8597; 82040; 82247; 82310; 82374; 82435; 82565; 82947; 84075; 84132; 84155; 84295; 84450; 84460; 84520

== ENCOUNTER → 2018-08-03 | Outpatient (CLI) | payer MEDICARE, OTHER | LOC: AUD 09:00 | PROVIDERS: ATTEND Internal Medicine | DX: H91.93 Unspecified hearing loss, bilateral (principal) | CPT/HCPCS: 92557; 92570 ==

== ENCOUNTER → 2018-08-23 | Outpatient (CLI) | payer MEDICARE, OTHER ==
--- NOTE | 2018-08-23 11:23 | RADIOLOGY IMAGING REPORT ---
FACILITY: [facility] PATIENT NAME: Tyrese Turner : 1935 MR: [id number] V: [id number] EXAM DATE: ORDERING PHYSICIAN: LATASHA PEDERSON TECHNOLOGIST: Location: [facility] - [place] Patient: Tyrese Turner : 1935 Visit/Account:[id number] Date of Sevice: 08/23/2018 CAROTID HISTORY: Memory loss COMPARISON: None. FINDINGS: Grayscale, duplex and color Doppler interrogation of the extracranial carotid and vertebral arteries was performed bilateral. On the right, peak systolic velocities within the common and internal carotid arteries are 107 and 75 cm/sec respectively. There is mild diffuse fibrofatty plaque noted along the length of the common c arotid artery and proximal internal carotid artery. Doppler waveforms are within normal limits and n o stenosis is identified. Antegrade flow within the common, internal and external carotid arteries a s well as vertebral artery. ICA/CCA ratio 0.7. On the left, peak systolic velocities within the common and internal carotid arteries are 126 and 70 cm/sec respectively. There is similar pattern of diffuse fibrofatty plaque without significant steno sis. Doppler waveforms are within normal limits.. Antegrade flow within the common, internal and ex ternal carotid arteries as well as vertebral artery. ICA/CCA ratio 0.6. IMPRESSION: Bilaterally, there is mild fibrofatty plaque without hemodynamically significant stenosis. Velocity criteria are extrapolated from diameter data as defined by the Society of Radiologists in [facility] Consensus Conference Radiology 2003; 229;[id number] Report Dictated By: Chadd Fong at 08/23/2018 11:17 AM Report E-Signed By: Chadd Fong at 08/23/2018 11:19 AM WSN:[email or web address]
== END ==
LOC: US 00:35
PROVIDERS: ATTEND Internal Medicine
DX: I65.23 Occlusion and stenosis of bilateral carotid arteries (principal); I51.7 Cardiomegaly; I35.0 Nonrheumatic aortic (valve) stenosis
CPT/HCPCS: 93306; 93880

== ENCOUNTER 2018-10-31 15:30 | Outpatient (RCR) | payer MEDICARE, OTHER ==
--- NOTE | 2018-08-11 08:08 | PT INITIAL EVALUATION ---
MEDICAL DIAGNOSIS: Vertigo TREATMENT DIAGNOSIS: R posterior canal BPPV, Imbalance DATE OF ONSET: 08/02/18 SUBJECTIVE: Tyrese Turner (Ted) presents to PT for vertigo, sudden onset 08/02/18. He had this 15 years ago and did well with the Ryan's maneuver. 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 He complains of spinning vertigo with bed mobility, transfers. This vertigo has stopped his daily 1.5 mile walk he does for his HTN and he's not doing wood working with power tools for fear of balance loss and injury. REHAB PROBLEM LIST: Decreased Balance, Strength, Function, Altered Gait PREVIOUS MEDICAL HISTORY: Uncontrolled HTN due to anxiety,HTN, anxiety, dermatitis, imbalance OCCUPATION: Retired architectural slitting machine operator, lives in a multi-story home with his , independent in all ADL's including yard work, wood working, home remodels. OBJECTIVE: Posture: Unsteady static stand, head midline ROM: LE's WFL. Strength: Hip abductors 4/5. Special Tests: Positive R Hallpike, posterior canal, upbeating and torsional nystagmus. Positive head thrust and reduced gaze stabilization with VOR x1. Mobility: Independent. Spinning vertigo with sit<>supine. Gait: Mariano ambulates with weaving with head motion, discordant steps. Fast/slow gait WNL. Balance: Rosado balance Assessment 42, a 25% impairment. Mariano has ataxic movements with attempt at tandem stand, no single leg stand. Functional reach 5". Other Objective Findings: BP 134/80, O2 on room air 96, HR 68 at rest. ASSESSMENT: Tyrese Turner (Ted) presents with R posterior canal BPPV, altered gait and imbalance. He did well with canalith repositioning, and is started with balance training. Short Term Goals One month: Mariano ambulates 1.5 miles over uneven ground without balance difficulty. Two months: Mariano demonstrated corrective balance reactions on uneven surfaces, ambulates through snow without balance difficulty. Patient's Goals Improve his balance so he can walk his 1.5 miles daily, work safely in his wood working shop PLAN: Patient to be seen for Strengthening/condition Stretching Neuromuscular Re-ed Gait Trg/Balance Trg Home Exercise Program 2x/Week for 2 Months Thank you for this referral. If you have any questions, comments, or concerns about this report or plan, please contact me at . [facility]
--- NOTE | 2018-09-20 08:15 | PT PLAN OF CARE ---
Physician: Dr. Carlos Lozano Patient is being seen: 2x/week Therapist: Ara Foote PT Medical Diagnosis: Vertigo Treatment Diagnosis: R posterior canal BPPV, Imbalance Date of Onset: 08/02/18 Date of Initial Evaluation: 08/09/18 Date patient was last seen: 09/19/18 Number of treatments: 10 Number of cancellations/No shows: 0 INTERVENTIONS: Strengthening/condition Stretching Neuromuscular Re-ed Gait Trg/Balance Trg Home Exercise Program GOALS: One month: Mariano ambulates 1.5 miles over uneven ground without balance difficulty. progressing Two months: Mariano demonstrates corrective balance reactions on uneven surfaces (progressing), ambulates through snow without balance difficulty (met). PATIENT'S GOAL: Improve his balance so he can walk his 1.5 miles daily (progressing), work safely in his wood working shop (met). Patient Compliance: Excellent Prognosis: Good Reasons for continuing therapy: S: Mariano relates he's walking his small dog 1.25 miles, is working in his wood shop safely. He still has balance difficulty with walking over uneven ground. Posture: Steady static stand, head midline ROM: LE's WFL. Gait: Functional Gait Assessment , a 17% impairment. Mariano still has weaving, staggered steps with gait with head motion. Special Tests: Negative R Hallpike, head thrust. Normal VOR x1. Mobility: Independent. No vertigo with sit<>supine. Balance: Rosado Balance Assessment improved to 47, now a normal fall risk. Tandem stand achieved, held <3 seconds, L and R. Feet coordination is improving but not WNL. Mariano's rapid foot movements is improving with small ataxic movements. A/P: Tyrese "Katja Turner is improving balance, gait endurance and reducing fall risk, improving cerebellar function. If you agree, we'll continue PT at 2x/week for the final 3 weeks to improve gait over uneven surfaces. Thank you. CASI
--- NOTE | 2018-10-31 16:21 | PT PLAN OF CARE ---
Physician: Dr. Carlos Lozano Patient is being seen: 2x/week Therapist: Ara Foote PT Medical Diagnosis: Vertigo Treatment Diagnosis: R posterior canal BPPV, Imbalance Date of Onset: 08/02/18 Date of Initial Evaluation: 08/09/18 Date patient was last seen: 10/31/18 Number of treatments: 15 Number of cancellations/No shows: 1 INTERVENTIONS: Strengthening/condition Stretching Neuromuscular Re-ed Gait Trg/Balance Trg Home Exercise Program GOALS: One month: Mariano ambulates 1.5 miles over uneven ground without balance difficulty. (met) Two months: Mariano demonstrates corrective balance reactions on uneven surfaces (met), ambulates through snow without balance difficulty (met). PATIENT'S GOAL: Improve his balance so he can walk his 1.5 miles daily (met), work safely in his wood working shop (met). Patient Compliance: Excellent Prognosis: Good Reasons for discontinuing therapy: S: Mariano relates he's walked between 24 to 38 miles/week over the last three weeks, no falls. He's shoveled snow, walked his dog 1.5 miles without difficulty and is working in his wood shop. He denies vertigo. Posture: Steady stand, heels together. Gait: Functional Gait Assessment 7% impairment. Mariano ambulates quickly, gait with head turn with normal line of progression. Balance: Rosado Balance Assessment a 7% impairment, holds single leg stand 5-10 seconds, tandem stand 15 seconds. Able to regain balance with stepping reflex now. Mobility: Independent. A/P: Tyrese "Katja Turner has habituated his vestibular system, improved dynamic balance reactions, and is ambulating at his normal fast pace. I'll DC PT to simple tandem stand HEP. Thank you. CASI
== END 2018-10-31 18:00 | disposition home or self-care (01) ==
LOC: PT 15:30
PROVIDERS: ATTEND Internal Medicine
DX: H81.11 Benign paroxysmal vertigo, right ear (principal); I10 Essential (primary) hypertension; F41.9 Anxiety disorder, unspecified; R26.89 Other abnormalities of gait and mobility
CPT/HCPCS: 97162